=== PATIENT | male | born 1975 | race Hispanic/Latino ===

== ENCOUNTER 2018-12-15 00:01 | Emergency (ER) | payer BC ==
[2018-12-15] MEDS ORDERED: IBUPROFEN 600 MG TABLET ONE (00:51)
[2018-12-15] MEDS ORDERED: DIPHENHYDRAMINE HCL 25 MG CAPSULE ONE (00:51)
== END 2018-12-15 01:28 | disposition home or self-care (01) ==
LOC: EDH 00:01
DX: H10.9 Unspecified conjunctivitis (principal)
CPT/HCPCS: 99283; Q0163